=== PATIENT | female | born 1990 | race Caucasian/White ===

== ENCOUNTER 2018-05-23 15:46 | Emergency (ER) | payer MEDICAID, OTHER ==
[~2018-05-23] VITALS: Ht 167.6 cm; Wt 68.5 kg
[2018-05-23 16:43] VITALS: BP 131/84
[2018-05-23] MEDS ORDERED: PENI500T2 PO (17:02)
[2018-05-23] MEDS ORDERED: HYDR-565 PO (17:02)
== END 2018-05-23 17:25 | disposition home or self-care (01) ==
LOC: ER 15:47
DX: M25.512 Pain in left shoulder (principal); K08.89 Other specified disorders of teeth and supporting structures; R21 Rash and other nonspecific skin eruption; R20.2 Paresthesia of skin; J45.909 Unspecified asthma, uncomplicated; Z87.440 Personal history of urinary (tract) infections; Z88.6 Allergy status to analgesic agent
CPT/HCPCS: 99283

== ENCOUNTER 2018-08-06 21:22 | Emergency (ER) | payer OTHER ==
[~2018-08-06] VITALS: Ht 167.6 cm; Wt 61.2 kg
[2018-08-06 22:46] LABS: URINE HCG NEGATIVE (NEG)
[2018-08-06 22:49] LABS: CLARITY,URINE CLEAR (Clear); COLOR,URINE YELLOW (Yellow); GLUCOSE, URINE NEGATIVE (Neg); KETONES,URINE NEGATIVE (Neg); LEUKOCYTE ESTERASE ,URINE SMALL (Neg); NITRITES, URINE NEGATIVE (Neg); OCCULT BLOOD,URINE TRACE-LYSED (Neg); PROTEIN,URINE NEGATIVE (Neg); UROBILINOGEN,URINE 0.2 E.U/dL (0.2-1.0)
[2018-08-06 23:02] LABS: URINE AMPHETAMINE SCREEN NEGATIVE (Neg); URINE BARBITUATE SCREEN NEGATIVE (Neg); URINE BENZODIAZEPINES SCREEN NEGATIVE (Neg); URINE CANNABINOID SCREEN POSITIVE (Neg); URINE COCAINE SCREEN POSITIVE (Neg); URINE METHADONE SCREEN NEGATIVE (Neg); URINE OPIATE SCREEN NEGATIVE (Neg); URINE PHENCYCLIDINE SCREEN NEGATIVE (Neg)
[2018-08-06 23:05] LABS: UA COLLECTION TYPE CLN CATCH MIDSTREAM
[2018-08-06 23:06] LABS: BACTERIA,URINE 2+ /HPF (Neg); SQUAMOUS EPITHELIAL CELL,UR FEW /LPF (FEW)
[2018-08-06 23:07] LABS: CAL OXALATE CRYSTALS 1+ /HPF (NEGATIVE)
[2018-08-06 23:11] LABS: BASOPHILS # (AUTO) 0.2 X10'3 (0-0.2); BASOPHILS % (AUTO) 1.6 % (0-1); EOSINOPHILS # (AUTO) 0.1 X10'3 (0-0.9); EOSINOPHILS % (AUTO) 0.8 % (0-6); HEMATOCRIT 40.8 % (35.0-45.0); HEMOGLOBIN 14.4 g/dl (12.0-16.0); LYMPHOCYTES # (AUTO) 1.3 X10'3 (1.1-4.8); LYMPHOCYTES % (AUTO) 11.5 % (21-51); MEAN CORPUSCULAR HEMOGLOBIN 31.9 PG (27.0-31.0); MEAN CORPUSCULAR HGB CONC 35.3 % (33.0-36.5); MEAN CORPUSCULAR VOLUME 90.3 FL (78-98); MEAN PLATELET VOLUME 7.7 FL (7.4-10.4); MONOCYTES # (AUTO) 0.5 X10'3 (0-0.9); MONOCYTES % (AUTO) 4.1 % (2-12); NEUTROPHILS # (AUTO) 9.1 X10'3 (1.8-7.7); PLATELET COUNT 418 X10'3 (140-440); RED BLOOD COUNT 4.53 X10'6 (4.20-5.60); RED CELL DISTRIBUTION WIDTH 11.4 % (11.5-14.5); WHITE BLOOD COUNT 11.2 X10'3 (4.5-11.0)
[2018-08-06 23:16] LABS: ALANINE AMINOTRANSFERASE 17 U/L (12-78); ALBUMIN/GLOBULIN RATIO 1.2 (1.1-1.5); ALKALINE PHOSPHATASE 64 IU/L (46-116); ANION GAP 10 (8-16); ASPARTATE AMINO TRANSFERASE 10 U/L (10-37); BILIRUBIN,TOTAL 0.4 MG/DL (0.1-1.0); BLOOD UREA NITROGEN 7 MG/DL (7-18); BUN/CREATININE RATIO 7.1 (6.6-38.0); CALCIUM 9.1 MG/DL (8.5-10.1); CHLORIDE 103 MMOL/L (99-107); CREATININE 0.98 MG/DL (0.40-0.90); GLUCOSE 110 MG/DL (70-104); POTASSIUM 3.4 MMOL/L (3.5-5.1); SODIUM 141 MMOL/L (135-145); TOTAL CARBON DIOXIDE 27.6 MMOL/L (24-32); TOTAL PROTEIN 7.3 G/DL (6.4-8.2); eGFR 69 ML/MIN
[2018-08-06 23:25] LABS: ETHANOL < 0.010 GM/DL (0.0-0.010)
[2018-08-07] MEDS: CITALOpram 10mg tablet PO SCH (08:04)
[2018-08-07] MEDS: risperiDONE 0.5mg tablet PO SCH ×2 (08:04→19:27)
[2018-08-08] MEDS ORDERED: diphenhydrAMINE 50 mg/ml inj IM ONE (00:30)
[2018-08-08] MEDS ORDERED: haloperidol lactate 5mg/ml inj IM ONE (00:30)
[2018-08-08] MEDS ORDERED: LORazepam 2 mg/ml vial IM ONE (00:30)
[2018-08-08] MEDS: CITALOpram 10mg tablet PO SCH (08:37)
[2018-08-08] MEDS: risperiDONE 0.5mg tablet PO SCH ×2 (08:38→19:53)
[2018-08-09] MEDS: risperiDONE 0.5mg tablet PO SCH ×2 (07:57→20:19)
[2018-08-09] MEDS: CITALOpram 10mg tablet PO SCH (07:57)
[2018-08-09] MEDS ORDERED: acetaminophen 325mg tablet PO ONE (08:25)
[2018-08-09 11:25] LABS: CLARITY,URINE CLEAR (Clear); COLOR,URINE YELLOW (Yellow); GLUCOSE, URINE NEGATIVE (Neg); KETONES,URINE NEGATIVE (Neg); LEUKOCYTE ESTERASE ,URINE SMALL (Neg); NITRITES, URINE NEGATIVE (Neg); OCCULT BLOOD,URINE NEGATIVE (Neg); PROTEIN,URINE NEGATIVE (Neg); UROBILINOGEN,URINE 0.2 E.U/dL (0.2-1.0)
[2018-08-09 11:27] LABS: UA COLLECTION TYPE CLN CATCH MIDSTREAM
[2018-08-09 11:59] LABS: MUCUS STRANDS FEW /LPF (Neg); SQUAMOUS EPITHELIAL CELL,UR MODERATE /LPF (FEW)
[2018-08-09 12:01] LABS: BACTERIA,URINE 3+ /HPF (Neg); RBC,URINE 0-2 /HPF (0-2)
[2018-08-09 23:00] VITALS: BP 121/78
== END 2018-08-09 23:06 ==
LOC: ER 21:23
DX: R45.851 Suicidal ideations (principal); F14.90 Cocaine use, unspecified, uncomplicated; F32.9 Major depressive disorder, single episode, unspecified; R44.1 Visual hallucinations; F22 Delusional disorders; J45.909 Unspecified asthma, uncomplicated; Z98.890 Other specified postprocedural states
CPT/HCPCS: 36415; 80053; 80305; 80320; 81001; 81025; 84443; 85025; 87077; 87088; 87186; 93005; 99285

== ENCOUNTER 2019-11-26 04:59 | Emergency (ER) | payer MEDICAID ==
[~2019-11-26] VITALS: Ht 167.6 cm; Wt 64.5 kg
[2019-11-26 05:03] VITALS: BP 132/84
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
[2019-11-26] MEDS ORDERED: TETanus/Pertussis (Acell)/Diphther VAC/PF (Tdap-Adult) 0.5ml syringe IMVAC ONE (05:25)
[2019-11-26] MEDS ORDERED: acetaminophen 325mg tablet PO ONE (05:45)
== END 2019-11-26 06:06 | disposition home or self-care (01) ==
LOC: ER 05:00
DX: S00.83XA Contusion of other part of head, initial encounter (principal); M54.2 Cervicalgia; J45.909 Unspecified asthma, uncomplicated; F17.210 Nicotine dependence, cigarettes, uncomplicated; F14.90 Cocaine use, unspecified, uncomplicated; Z98.890 Other specified postprocedural states; Z88.6 Allergy status to analgesic agent; Y04.2XXA Assault by strike against or bumped into by another person, initial encounter; Y93.89 Activity, other specified; Y92.89 Other specified places as the place of occurrence of the external cause; Y99.9 Unspecified external cause status
CPT/HCPCS: 70450; 99284

== ENCOUNTER 2019-12-09 21:52 | Emergency (ER) | payer MEDICAID ==
[~2019-12-09] VITALS: Ht 167.6 cm; Wt 68.0 kg
[2019-12-09 21:53] VITALS: BP_DIAS 83
--- NOTE | 2019-12-09 22:12 | NUR ---
PT STATES SHE TRIED PROVIDING A URINE SAMPLE BUT DIDNT HAVE ENOUGH TO COLLET MIDSTREAM. SHE WAS GIVEN 500CC OF WATER TO DRINK.
--- NOTE | 2019-12-09 22:43 | NUR ---
pt was able to void enough to test for hcg and gc screening but not enough for urinalysis. pt given another 500 cc cup of water to drink. provider made aware.
[2019-12-09 22:46] LABS: URINE HCG NEGATIVE (NEG)
[2019-12-09 22:51] LABS: CLARITY,URINE CLEAR (Clear); COLOR,URINE YELLOW (Yellow); GLUCOSE, URINE NEGATIVE (Neg); KETONES,URINE NEGATIVE (Neg); LEUKOCYTE ESTERASE ,URINE TRACE (Neg); NITRITES, URINE NEGATIVE (Neg); OCCULT BLOOD,URINE NEGATIVE (Neg); PROTEIN,URINE TRACE mg/dl (Neg)
[2019-12-09 22:57] LABS: UA COLLECTION TYPE CLN CATCH MIDSTREAM
[2019-12-09 23:00] LABS: BACTERIA,URINE FEW /HPF (Neg); RBC,URINE NONE SEEN /HPF (0-2); SQUAMOUS EPITHELIAL CELL,UR MANY /LPF (FEW); WBC,URINE 0-4 /HPF (0-4)
[2019-12-09] MEDS ORDERED: CEPH500C5 PO (23:28)
[2019-12-09 23:46] LABS: CLARITY,URINE CLEAR (Clear); COLOR,URINE STRAW (Yellow); GLUCOSE, URINE NEGATIVE (Neg); KETONES,URINE NEGATIVE (Neg); LEUKOCYTE ESTERASE ,URINE NEGATIVE (Neg); NITRITES, URINE NEGATIVE (Neg); OCCULT BLOOD,URINE NEGATIVE (Neg); PH,URINE 6.5 (4.8-8.0); PROTEIN,URINE NEGATIVE (Neg); UROBILINOGEN,URINE 0.2 E.U/dL (0.2-1.0)
[2019-12-09 23:49] LABS: UA COLLECTION TYPE CLN CATCH MIDSTREAM
[2019-12-09 23:52] VITALS: BP_SYST 71
== END 2019-12-09 23:53 | disposition home or self-care (01) ==
LOC: ER 21:52
DX: N39.0 Urinary tract infection, site not specified (principal); R05 Cough; R07.81 Pleurodynia; J02.9 Acute pharyngitis, unspecified; I10 Essential (primary) hypertension; J45.909 Unspecified asthma, uncomplicated; Z98.890 Other specified postprocedural states; Z86.69 Personal history of other diseases of the nervous system and sense organs; Z88.6 Allergy status to analgesic agent; Z79.899 Other long term (current) drug therapy
CPT/HCPCS: 36415; 81001; 81003; 81025; 87081; 87491; 87880; 99283

== ENCOUNTER 2020-01-26 17:58 | Emergency (ER) | payer MEDICAID ==
[~2020-01-26] VITALS: Ht 167.6 cm; Wt 59.0 kg
[2020-01-26 18:03] VITALS: BP 130/90
[2020-01-26] MEDS ORDERED: ACYC-202 PO (19:03)
[2020-01-26] MEDS ORDERED: PENICILLIN IM ONE (19:05)
[2020-01-26] MEDS ORDERED: penicillin G benzathine 1.2 million unit/2ml syringe IM ONE (19:05)
== END 2020-01-26 19:21 | disposition home or self-care (01) ==
LOC: ER 17:59
DX: Z20.2 Contact with and (suspected) exposure to infections with a predominantly sexual mode of transmission (principal); I10 Essential (primary) hypertension; J45.909 Unspecified asthma, uncomplicated; Z98.890 Other specified postprocedural states; Z79.82 Long term (current) use of aspirin; Z79.2 Long term (current) use of antibiotics
CPT/HCPCS: 96372; 99283; J0561

== ENCOUNTER 2020-05-10 14:40 | Emergency (ER) | payer MEDICAID ==
[~2020-05-10] VITALS: Ht 167.6 cm; Wt 56.8 kg
[~2020-05-10 14:40] MED LIST: LIDOcaine 1% W/epiNEPHrine 1:100,000 20ml vial ONE
[2020-05-10 14:51] VITALS: BP 129/88
[2020-05-10] MEDS ORDERED: SULF1TAB49 PO (17:48)
[2020-05-10] MEDS ORDERED: TETanus/Pertussis (Acell)/Diphther VAC/PF (Tdap-Adult) 0.5ml syringe IMVAC ONE (17:50)
== END 2020-05-10 18:22 | disposition home or self-care (01) ==
LOC: ER 14:40
DX: L03.011 Cellulitis of right finger (principal); I10 Essential (primary) hypertension; J45.909 Unspecified asthma, uncomplicated; F12.90 Cannabis use, unspecified, uncomplicated; Z98.890 Other specified postprocedural states; Z79.2 Long term (current) use of antibiotics; Z88.6 Allergy status to analgesic agent; Z79.899 Other long term (current) drug therapy
CPT/HCPCS: 10060; 73130; 99283

== ENCOUNTER 2020-06-04 13:42 | Emergency (ER) | payer MEDICAID ==
[~2020-06-04] VITALS: Ht 167.6 cm; Wt 58.8 kg
[2020-06-04 13:49] VITALS: BP 129/81
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
[2020-06-04] MEDS ORDERED: azithromycin 250mg tablet PO ONE (14:35)
[2020-06-04] MEDS ORDERED: CefTRIAXone 250MG IM Kit w/LIDOcaine IM ONE (14:35)
[2020-06-04] MEDS ORDERED: sulfamethoxazole/trimethoprim DS (800/160mg) tablet PO ONE (14:35)
[2020-06-04] MEDS ORDERED: SULF1TAB49 PO (15:07)
== END 2020-06-04 15:17 | disposition home or self-care (01) ==
LOC: ER 13:43
DX: J06.9 Acute upper respiratory infection, unspecified (principal); L02.511 Cutaneous abscess of right hand; Z20.828 Contact with and (suspected) exposure to other viral communicable diseases; I10 Essential (primary) hypertension; J45.909 Unspecified asthma, uncomplicated; F12.90 Cannabis use, unspecified, uncomplicated; F15.90 Other stimulant use, unspecified, uncomplicated; Z98.890 Other specified postprocedural states; Z88.6 Allergy status to analgesic agent
CPT/HCPCS: 36415; 87491; 87591; 87635; 96372; 99283; C9803; J0696

== ENCOUNTER 2020-07-06 10:06 | Emergency (ER) | payer MEDICAID ==
[~2020-07-06] VITALS: Ht 167.6 cm; Wt 61.0 kg
[2020-07-06] MEDS ORDERED: PENI500T2 PO (11:10)
[2020-07-06 11:32] VITALS: BP 127/91
== END 2020-07-06 11:34 | disposition home or self-care (01) ==
LOC: ER 10:06
DX: K04.7 Periapical abscess without sinus (principal); I10 Essential (primary) hypertension; F17.200 Nicotine dependence, unspecified, uncomplicated; J45.909 Unspecified asthma, uncomplicated; Z86.2 Personal history of diseases of the blood and blood-forming organs and certain disorders involving the immune mechanism; Z98.890 Other specified postprocedural states; Z88.6 Allergy status to analgesic agent; Z79.899 Other long term (current) drug therapy
CPT/HCPCS: 99283

== ENCOUNTER 2020-07-26 07:53 | Emergency (ER) | payer MEDICAID ==
[~2020-07-26] VITALS: Ht 167.6 cm; Wt 67.9 kg
[~2020-07-26 07:53] MED LIST changes: -LIDOcaine 1% W/epiNEPHrine 1:100,000 20ml vial ONE; +PENI500T2 PO
[2020-07-26] MEDS ORDERED: ACET-1995 PO (09:14)
== END 2020-07-26 09:33 | disposition home or self-care (01) ==
LOC: ER 07:54
DX: M25.511 Pain in right shoulder (principal); I10 Essential (primary) hypertension; J45.909 Unspecified asthma, uncomplicated; Z86.2 Personal history of diseases of the blood and blood-forming organs and certain disorders involving the immune mechanism; Z98.890 Other specified postprocedural states; Z88.6 Allergy status to analgesic agent; Z79.899 Other long term (current) drug therapy; W18.39XA Other fall on same level, initial encounter; Y93.68 Activity, volleyball (beach) (court); Y92.89 Other specified places as the place of occurrence of the external cause; Y99.8 Other external cause status
CPT/HCPCS: 73030; 73080; 99284

== ENCOUNTER 2020-09-20 15:14 | Emergency (ER) | payer MEDICAID ==
[~2020-09-20] VITALS: Ht 167.6 cm; Wt 71.8 kg
[2020-09-20 15:17] VITALS: BP 141/90
== END 2020-09-20 15:50 | disposition home or self-care (01) ==
LOC: ER 15:15
DX: R50.9 Fever, unspecified (principal); R05 Cough; R19.7 Diarrhea, unspecified; Z20.828 Contact with and (suspected) exposure to other viral communicable diseases; I10 Essential (primary) hypertension; J45.909 Unspecified asthma, uncomplicated; Z86.2 Personal history of diseases of the blood and blood-forming organs and certain disorders involving the immune mechanism; Z87.440 Personal history of urinary (tract) infections; Z98.890 Other specified postprocedural states; Z88.8 Allergy status to other drugs, medicaments and biological substances; Z88.6 Allergy status to analgesic agent
CPT/HCPCS: 36415; 99282

== ENCOUNTER 2021-09-14 18:20 | Emergency (ER) | payer MEDICAID ==
[~2021-09-14] VITALS: Ht 167.6 cm; Wt 59.0 kg
== END 2021-09-14 23:01 | disposition left against medical advice (07) ==
LOC: ER 18:21
DX: Z00.8 Encounter for other general examination (principal); Z53.21 Procedure and treatment not carried out due to patient leaving prior to being seen by health care provider

== ENCOUNTER 2021-09-30 00:42 | Emergency (ER) | payer MEDICAID ==
[~2021-09-30] VITALS: Ht 167.6 cm; Wt 47.2 kg
[2021-09-30 00:52] VITALS: BP 136/93
[2021-09-30] MEDS ORDERED: amox tr/potassium clavulanate 875/125mg TAB PO ONE (02:50)
[2021-09-30] MEDS ORDERED: HYDR-3965 PO (02:50)
[2021-09-30] MEDS ORDERED: AMOX-117 PO (02:50)
[2021-09-30] MEDS ORDERED: HYDROcodone/acetaminophen 5mg/325mg tablet PO ONE (02:50)
== END 2021-09-30 03:19 | disposition home or self-care (01) ==
LOC: ER 00:43
DX: G89.18 Other acute postprocedural pain (principal); R68.84 Jaw pain; I10 Essential (primary) hypertension; J45.909 Unspecified asthma, uncomplicated; Z86.2 Personal history of diseases of the blood and blood-forming organs and certain disorders involving the immune mechanism; Z87.440 Personal history of urinary (tract) infections; Z98.891 History of uterine scar from previous surgery; Z88.8 Allergy status to other drugs, medicaments and biological substances; Z79.899 Other long term (current) drug therapy
CPT/HCPCS: 99283

== ENCOUNTER 2022-10-30 00:05 | Emergency (ER) | payer MEDICAID ==
[~2022-10-30] VITALS: Ht 160 cm; Wt 68.2 kg
[2022-10-30 00:13] VITALS: BP 114/75
== END 2022-10-30 17:48 | disposition left against medical advice (07) ==
LOC: ER 00:05
DX: Z04.6 Encounter for general psychiatric examination, requested by authority (principal); Z53.21 Procedure and treatment not carried out due to patient leaving prior to being seen by health care provider

== ENCOUNTER 2025-07-08 00:59 | Emergency (ER) | payer MEDICAID ==
[~2025-07-08] VITALS: Ht 167.6 cm; Wt 58.5 kg
[2025-07-08 01:35] VITALS: BP 125/79; PULSE 84; RESP 14; TEMP 98.6; O2SAT 99
== END 2025-07-08 03:32 | disposition left against medical advice (07) ==
LOC: ER 01:00
DX: K08.89 Other specified disorders of teeth and supporting structures (principal); H92.02 Otalgia, left ear; Z88.6 Allergy status to analgesic agent; Z88.8 Allergy status to other drugs, medicaments and biological substances